=== PATIENT | female | born 1955 | race Caucasian/White ===

== ENCOUNTER 2019-02-22 05:57 | Inpatient (IN) ==
[2019-02-14 15:01] LABS: Appearance,Urine CLEAR; Bilirubin,Urine NEG (NEG); Color,Urine STRAW; Glucose,Urine (UA) NEGATIVE (NEG); Ketones,Urine NEG (NEG); Leukocyte Esterase,Urine NEG /uL (NEG); Nitrate,Urine NEG (NEG); Protein,Urine NEG (NEG); Urine Blood NEG mg/dL (<0.03); Urobilinogen,Urine NEG (NEG)
[2019-02-14 15:56] LABS: Basophils # (Auto) 0 K/mcL (0.0-0.3); Basophils % (Auto) 0.7 % (0.0-2.0); Eosinophils # (Auto) 0 K/mcL (0.0-0.7); Eosinophils % (Auto) 0.1 % (0.0-7.0); Granulocytes % (Auto) 57.7 % (38.0-78.0); Hemoglobin 13.6 g/dL (12.0-15.0); Lymphocytes # (Auto) 2.1 K/mcL (1.5-4.8); Lymphocytes % (Auto) 34.7 % (15.5-49.0); Mean Cell Volume 89.7 fL (80.0-100.0); Mean Corpuscular HGB Conc 33.1 g/dL (31.0-36.0); Mean Platelet Volume 8.5 fL (7.4-10.4); Monocytes # (Auto) 0.4 K/mcL (0.1-0.9); Monocytes % (Auto) 6.8 % (1.0-12.0); Platelet Count 248 K/mcL (140-440); RBC 4.57 M/mcL (4.00-5.20); Red Cell Distribution Width 12.6 % (11.5-14.5); WBC 6.1 K/mcL (4.5-11.0)
[2019-02-14 16:02] LABS: Blood Urea Nitrogen 18 mg/dl (8-23); Calcium 9.3 mg/dl (8.6-10.4); Carbon Dioxide 29 mmol/L (22-30); Chloride 97 mmol/L (96-108); Glomerular Filtration Rate 49; Glucose 79 mg/dL (70-105)
[~2019-02-22 05:57] MED LIST: IPRATROPIUM/ALBUTEROL 3 ML AMPUL.NEB NEB PRN; SCOPOLAMINE 1 PATCH PATCH TOPICAL PRN
[2019-02-22] MEDS ORDERED: GABAPENTIN 300 MG CAPSULE PO SCH (06:00)
[2019-02-22] MEDS ORDERED: oxyCODONE 10 MG TAB.ER.12H PO SCH (06:00)
[2019-02-22] MEDS ORDERED: ceFAZolin 2 GM in DEXTROSE 5% IN WATER 50 ML IV SCH (06:00)
[2019-02-22] MEDS ORDERED: CELECOXIB 200 MG CAPSULE PO SCH (06:00)
[2019-02-22] MEDS ORDERED: PHENYLEPHRINE 10 MG/ML VIAL IV ONE (09:45)
[2019-02-22] MEDS ORDERED: ONDANSETRON 4 MG/2 ML VIAL IV ONE (09:45)
[2019-02-22] MEDS ORDERED: PROPOFOL 200 MG/20 ML VIAL IV ONE (09:45)
[2019-02-22] MEDS ORDERED: LIDOCAINE HCL/PF 100 MG/5 ML SYRINGE IV ONE (09:45)
[2019-02-22] MEDS ORDERED: MIDAZOLAM 5 MG/5 ML VIAL IV ONE (09:45)
[2019-02-22] MEDS ORDERED: DEXAMETHASONE 10 MG/ML VIAL IV ONE (09:45)
[2019-02-22] MEDS ORDERED: ePHEDrine 50 MG/ML AMPUL IV ONE (09:45)
[2019-02-22] MEDS ORDERED: ROPIVACAINE HCL/PF 20 ML VIAL IJ ONE (09:45)
[2019-02-22] MEDS ORDERED: TRANEXAMIC ACID 1,000 MG/10 ML VIAL IV ONE (09:45)
[2019-02-22] MEDS ORDERED: GENTAMICIN SULFATE 800 MG/20 ML VIAL IR ONE (10:06)
[2019-02-22] MEDS ORDERED: ACETAMINOPHEN 1,000 MG/100 ML BOTTLE IV ONE (11:20)
[2019-02-22] MEDS ORDERED: METOPROLOL TARTRATE 5 MG/5 ML VIAL IV PRN (11:20)
[2019-02-22] MEDS ORDERED: ATROPINE SULFATE 0.4 MG/ML VIAL IV PRN (11:20)
[2019-02-22] MEDS ORDERED: NALOXONE HCL 0.4 MG/ML VIAL IV PRN (11:20)
[2019-02-22] MEDS ORDERED: fentaNYL 100 MCG/2 ML VIAL IV PRN (11:20)
[2019-02-22] MEDS ORDERED: KETOROLAC 30 MG/ML VIAL IV PRN (11:20)
[2019-02-22] MEDS ORDERED: FLUMAZENIL 0.1 MG/ML ML IV PRN (11:20)
[2019-02-22] MEDS ORDERED: ONDANSETRON 4 MG/2 ML VIAL IV PRN (11:20)
[2019-02-22] MEDS ORDERED: MEPERIDINE 25 MG/ML SYRINGE IV PRN (11:20)
[2019-02-22] MEDS ORDERED: METHOCARBAMOL 1,000 MG/10 ML VIAL IV PRN (11:20)
[2019-02-22] MEDS ORDERED: IPRATROPIUM/ALBUTEROL 3 ML AMPUL.NEB NEB PRN (11:20)
[2019-02-22] MEDS ORDERED: ePHEDrine 50 MG/ML AMPUL IV PRN (11:20)
[2019-02-22] MEDS ORDERED: HYDROmorphone 2 MG/ML VIAL IV PRN (11:20)
[2019-02-22] MEDS ORDERED: diphenhydrAMINE 50 MG/ML VIAL IV PRN (11:20)
[2019-02-22] MEDS ORDERED: GABAPENTIN 300 MG CAPSULE PO PRN (12:12)
[2019-02-22] MEDS ORDERED: oxyCODONE/APAP 5/325MG TABLET PO PRN (12:14)
--- NOTE | 2019-02-22 13:01 | XRay Report ---
CLINICAL INFORMATION: ankle replacement COMPARISON: None. FINDINGS: Ankle prostheses is anatomically aligned. Solid fusion across the talar calcaneal joint again noted. Cast material obscures bone detail, but no gross abnormality. IMPRESSION: Ankle prostheses is anatomically aligned. Solid talocalcaneal fusion Interpreted and Authenticated by: Paul Escalnate 02/22/19
[2019-02-22] MEDS ORDERED: 0.9 % SODIUM CHLORIDE 1,000 ML IV SCH (13:30)
[2019-02-22] MEDS: CELECOXIB 200 MG CAPSULE PO SCH (17:05)
[2019-02-22] MEDS: oxyCODONE/APAP 5/325MG TABLET PO PRN ×2 (19:16→23:18)
[2019-02-22] MEDS ORDERED: VITAMIN E (DL,TOCOPHERYL ACET) 400 UNIT CAPSULE PO SCH (21:00)
[2019-02-22] MEDS ORDERED: traZODone HCL 50 MG TABLET PO SCH (21:00)
[2019-02-22] MEDS ORDERED: GLUCOSAMINE HCL 500 MG PO SCH (21:00)
[2019-02-22] MEDS ORDERED: clonazePAM 1 MG TABLET PO SCH (21:00)
[2019-02-22] MEDS: ASPIRIN 81 MG TAB.CHEW CHEWED SCH (22:02)
[2019-02-22] MEDS: OXYBUTYNIN CHLORIDE 5 MG TABLET PO SCH (22:03)
[2019-02-23] MEDS: oxyCODONE/APAP 5/325MG TABLET PO PRN (05:47)
[2019-02-23] MEDS ORDERED: oxyCODONE/APAP 10/325MG TABLET PO PRN (07:18)
--- NOTE | 2019-02-23 07:26 | Discharge Summary ---
Providers - Providers Patient information: Note initiated : 02/23/19 at 7:25 am Service Date, if different from initiated Date: [] Patient: Chuck Peña 63 y/o F admitted on 02/22/19 for Right Total Ankle Arthroplasty - Inbone. Chief Complaint: [] Discharge date: 02/23/19 Hospitalization Hospital Course: total ankle 02/22 no co,plications Discharge diagnosis: total ankle replacement Exam - Exam Clean and dry: Yes Weight bearing status: none Ortho Discharge Plan - General - Patient Instructions Diet: Regular Diet - Follow Up Plan Follow Up Appointments: Steven Escobar PA-C [Physician Business Account Manager] - Disposition: Home, Self-Care Prognosis: Good Rehab Potential: Good I certify that the patient requires SNF services: No - Orders For Discharge Prescriptions: oxyCODONE/APAP [Percocet 10-325Mg] 1 - 2 tab PO Q4-6HP PRN #40 tab PRN Reason: Per Pain Protocol Prescription Printed Pending Studies Resuscitation Status Full Code Diet Regular Diet Start TueFeb 22 1217 Aspirin (Aspirin) 81 mg CHEWED BID [facility] Last Admin: 02/22/19 22:02 Dose: 81 mg Documented by: JEAN-PAUL Celecoxib (Celebrex) 200 mg PO DAILY [facility] Last Admin: 02/22/19 17:05 Dose: 200 mg Documented by: SEJAL Clonazepam (Klonopin) 1 mg PO HS [facility] Last Admin: 02/22/19 22:01 Dose: 1 mg Documented by: JEAN-PAUL Gabapentin (Neurontin) 300 mg PO BIDP PRN PRN Reason: Anxiety Last Admin: 02/22/19 19:16 Dose: 300 mg Documented by: FLORENCIO Levothyroxine Sodium (Synthroid) 50 mcg PO ACB [facility] Last Admin: 02/23/19 06:41 Dose: 50 mcg Documented by: SEJAL Morphine Sulfate (Morphine) 2 - 4 mg IV Q1HP PRN; Protocol PRN Reason: Pain Last Admin: 02/22/19 15:46 Dose: 2 mg Documented by: SEJAL Oxybutynin Chloride (Ditropan) 5 mg PO BID [facility] Last Admin: 02/22/19 22:03 Dose: 5 mg Documented by: JEAN-PAUL Oxycodone/Acetaminophen (Percocet 5-325 Mg) 1 - 2 tab PO Q4HP PRN; Protocol PRN Reason: Per Pain Protocol Last Admin: 02/23/19 05:47 Dose: 2 tab Documented by: JEAN-PAUL Admin: 02/22/19 23:18 Dose: 2 tab Documented by: JEAN-PAUL Admin: 02/22/19 19:16 Dose: 2 tab Documented by: FLORENCIO Glucosamine Hcl 500 (Mg Cap) 1 dose PO [facility] Last Admin: 02/22/19 22:03 Dose: Not Given Documented by: JEAN-PAUL Trazodone HCl (Desyrel) 150 mg PO [facility] Last Admin: 02/22/19 22:02 Dose: 150 mg Documented by: JEAN-PAUL Vitamin E (Vitamin E) 800 unit PO [facility] Last Admin: 02/22/19 22:01 Dose: 800 unit Documented by: JEAN-PAUL Shift Summary 02/23/19 05:20 Shift Summary by Maggie Wild VSKedar on RA. A&Ox4. Has received PRN Percocet 10mg x2 tonight. Has been able to sleep between cares. Using ice as desired to help alleviate R ankle pain. Elevating leg in bed. Dressing/cast to R foot is C/D/I. Up to BSC with stand pivot transfer. Pt. is non weight bearing to R foot. IV to L FA is SL. Initialized on 02/23/19 05:20 - END OF NOTE
[2019-02-23] MEDS ORDERED: LEVOTHYROXINE 50 MCG TABLET PO SCH (07:30)
[2019-02-23] MEDS: OXYBUTYNIN CHLORIDE 5 MG TABLET PO SCH (08:18)
[2019-02-23] MEDS: ASPIRIN 81 MG TAB.CHEW CHEWED SCH (08:18)
[2019-02-23] MEDS: CELECOXIB 200 MG CAPSULE PO SCH (08:19)
[2019-02-23] MEDS ORDERED: BREXPIPRAZOLE 4 MG PO SCH (09:00)
[2019-02-23] MEDS ORDERED: VITAMIN D3 5,000 UNIT CAPSULE PO SCH (09:00)
[2019-02-23] MEDS ORDERED: AMPHETAMINE PO SCH (09:00)
[2019-02-23] MEDS ORDERED: VITAMIN B COMPLEX 1 CAPSULE PO SCH (09:00)
[2019-02-23] MEDS ORDERED: SACCHAROMYCES BOULARDII 500 MG PO SCH (09:00)
[2019-02-23] MEDS ORDERED: [UNRECOGNIZED DRUG - OTHER] PO SCH (09:00)
[2019-02-23] MEDS ORDERED: DEXTROAMPHETAMINE PO SCH (09:00)
[2019-02-23] MEDS ORDERED: DULoxetine 30 MG CAPSULE PO SCH (09:00)
[2019-02-23] MEDS ORDERED: FLU VACC QS2019-20(6MOS UP)/PF 60 MCG/0.5 ML SYRINGE IM ONE (10:00)
--- NOTE | 2019-02-23 15:24 | Operative Note ---
DATE OF OPERATION: 02/22/2019 PREOPERATIVE DIAGNOSES: 1. Posttraumatic arthritis of the right ankle. 2. Prominent hardware. POSTOPERATIVE DIAGNOSES: 1. Posttraumatic arthritis of the right ankle. 2. Prominent hardware. OPERATION: 1. An Inbone total ankle replacement on the right side. 2. Hardware removal. SURGEON: Frandy Fuentes M.D. HALAL MEAT PACKER: Steven Escobar PA-C. The PA's assistance was required for the safe and efficient completion of the entire case. This provider's expertise and technical skill were required throughout the case. The PA assisted with preoperative coordination, intraoperative retraction, wound closure, dressing and splint application, as well as postoperative documentation and care coordination. ANESTHESIA: General TOURNIQUET TIME: 103minutes. ESTIMATED BLOOD LOSS: 50 mL. SUMMARY OF PROCEDURE: General anesthesia was attained. An incision was made from 8 cm above the ankle joint to 4 cm below. It was made between the tibialis anterior and the extensor hallucis longus. The incision was taken down to bone. The talonavicular joint was exposed as was the ankle joint. The tibial alignment guide was next placed and adjusted. This was done under mini C-arm control. The pins were placed. The first cut that was made was the notch cut, and this was done using a drill and the antirotation insert alignment guide. The tibial alignment guide was then switched for the cutting guide. The tibia was cut for a size 3. The talar guide was then placed on the talus and position confirmed on mini C-arm. This was then pinned into place from anterior. The cutting guide was next placed and the talar cut was made. We then switched back to removing the remaining bone on the tibia. This required the use of the corner chisels and the bone removal screw. The first cut of the tibia was then removed. The tibial stem alignment was then done. The anterior stem alignment guide was placed, followed by the drill cartridge. The ___ bracket was adjusted to the anterior stem alignment guide, and the ankle was brought into dorsiflexion. The alignment guide was used to locate the portal that was made in the calcaneus and heel pad. This was marked and then the cut made. I then used the drill to drill from the calcaneus into about 5 cm above the tibial cut. This was done under C-arm control. The bushing attachment was then pinned into place. The components that were used included four stem pieces as well as the tray. These were attached and advanced using a screwdriver from the working portal in the calcaneus and using the anterior incision. We then trialed and got a 3 long trial to give best coverage of the tibia. The plate was then inserted as well. I then used a trial insert and then adjusted the position of the #2 trial talus. This was pinned into place. The anterior cuts were made. The trial was removed and then the stem cut was made as well. Once again, the tibial size was a 2 and the stem was a 10. These were malleted together. The tibia had a screw blocking the position of the talus. This was from previous open reduction and internal fixation of the talus. This screw was dissected out meticulously and then removed. The area of bone loss from removing the screw was small, but we did place some bone cement in this area at final implantation. The components were next impacted. Cement was placed into the posterolateral bone defect in the talus. Excellent stability was obtained. The best combination of motion and stability was with a 12 mm insert and this was next placed using the tool and plunger. Final mini C-arm views showed excellent alignment and position of the total ankle. The wound was copiously irrigated. The tourniquet was let down. The retinacular closure was done using [id number] sutures of 2-0 Monocryl. The subcutaneous tissue was reapproximated with 2-0 Monocryl and the skin was hand closed with mattress sutures of 3-0 nylon. A Mepilex dressing was applied, followed by patting and a Diane boot that is the splint. The sponge and needle count was correct. The patient tolerated the procedure well and was taken to the recovery room in stable condition. TJF:adelaide Job ID: [id number] Doc ID: [id number] Frandy Fuentes MD
== END 2019-02-23 08:45 | disposition home or self-care (01) | DRG 469 ==
LOC: MEDSUR 05:57
PROVIDERS: ADMIT Orthopaedic Surgery Foot and Ankle Surgery; ATTEND Orthopaedic Surgery Foot and Ankle Surgery